=== PATIENT | female | born 1965 ===

== ENCOUNTER 2018-04-02 14:35 | Emergency (ER) | payer BC ==
[2018-04-02 14:53] VITALS: BP 114/74; PULSE 76; RESP 16; TEMP 99.1; O2SAT 99
--- NOTE | 2018-04-02 15:49 | ED PDOC ---
Lower Extremity Pain/Injury Time Seen by Provider: 04/02/18 14:56 Chief Complaint (Nursing): Lower Extremity Problem/Injury Chief Complaint (Provider): Bilateral Foot Pain History Per: Patient History/Exam Limitations: no limitations Onset/Duration Of Symptoms: Days (x2 weeks) Current Symptoms Are (Timing): Still Present Additional Complaint(s): 52 year old female presents to the ED for evaluation of severe pain to the bottoms of both feet. Patient reports for the last two weeks, the pain has been constant but worsening, especially with ambulation and standing, which she says she does a lot at work. She notes she has a history of similar symptoms, and was at one point seeing a biology research assistant in [place], but has not seen him in over a year. Of note, she states she used to receive injections from her biology research assistant in the feet which relieved her symptoms. PMD: none provided Past Medical History Reviewed: Historical Data, Nursing Documentation, Vital Signs Vital Signs: Last Vital Signs Temp 99.1 F 04/02/18 14:50 Pulse 76 04/02/18 14:50 Resp 16 04/02/18 14:50 BP 114/74 04/02/18 14:50 Pulse Ox 99 04/02/18 14:50 - Medical History PMH: Hypothyroidism Denies: Diabetes, Hepatitis, HIV, HTN, Seizures, Sexually Transmitted Disease - Surgical History Surgical History: (x2) - Family History Family History: States: Unknown Family Hx - Social History Current smoker - smoking cessation education provided: No Alcohol: None - Home Medications Home Medications: Ambulatory Orders Medication Instructions Recorded Ibuprofen [Motrin] 600 mg PO Q6 #20 tab 04/02/18 - Allergies Allergies/Adverse Reactions: Allergies Allergy/AdvReac Type Severity Reaction Status Date / Time No Known Allergies Allergy Verified 06/01/14 23:23 Review of Systems ROS Statement: Except As Marked, All Systems Reviewed And Found Negative Musculoskeletal: Positive for: Foot Pain (sereve pain to bottom of bilat feet) Physical Exam - Reviewed Nursing Documentation Reviewed: Yes Vital Signs Reviewed: Yes - Physical Exam Appears: Positive for: No Acute Distress Skin: Positive for: Normal Color, Warm, Dry Cardiovascular/Chest: Positive for: Regular Rate, Rhythm Respiratory: Positive for: Normal Breath Sounds. Negative for: Accessory Muscle Use, Respiratory Distress Pulses-Dorsalis Pedis (L): 2+ Pulses-Dorsalis Pedis (R): 2+ Extremity: Positive for: Normal ROM (of bilat LE), Tenderness (to peroneal and plantar aspects of bilat feet) Neurologic/Psych: Positive for: Alert, Oriented (x3). Negative for: Motor/ Sensory Deficits - ECG O2 Sat by Pulse Oximetry: 99 (RA) Pulse Ox Interpretation: Normal Medical Decision Making Medical Decision Making: Time: 1536 Initial Impression: planter fasciitis, concern for heel spurs Initial Plan: --XR bilateral foot --Motrin 600 mg PO 1613 XR feet FINDINGS: BONES: Right Foot: No acute fracture appreciated. . Left Foot: No acute fracture appreciated. JOINTS: Right Foot: Arthrosis Left Foot: Arthrosis SOFT TISSUES: Right Foot: Normal. Left Foot: Normal. OTHER FINDINGS: None. IMPRESSION: No acute fracture appreciated. 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 There appearances is not believe the to be an acute finding. An os peroneum on the right is incidentally noted. 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 1649 Patient made aware of diagnosis using hospital social worker [id number]. All questions answered at this time. Scribe Attestation: Documented by Agnieszka Macdonald, acting as a scribe for Aurea Smith PA-C. Provider Scribe Attestation: All medical record entries made by the Scribe were at my direction and personally dictated by me. I have reviewed the chart and agree that the record accurately reflects my personal performance of the history, physical exam, medical decision making, and the department course for this patient. I have also personally directed, reviewed, and agree with the discharge instructions and disposition. Disposition - Clinical Impression Clinical Impression: Foot pain, bilateral - Disposition Referrals: Podiatry Clinic [Outside] Disposition Time: 17:09 Condition: STABLE Prescriptions: Ibuprofen [Motrin] 600 mg PO Q6 #20 tab Instructions: Heel Pain (Caused by Plantar Fasciitis) Forms: [facility] ([place]) Print Language: CHINESE
--- NOTE | 2018-04-02 16:37 | RAD ---
Date of service: 04/02/2018 PROCEDURE: Bilateral Feet Radiographs. HISTORY: pain atraumatic COMPARISON: None. FINDINGS: BONES: Right Foot: No acute fracture appreciated. . Left Foot: No acute fracture appreciated. JOINTS: Right Foot: Arthrosis Left Foot: Arthrosis SOFT TISSUES: Right Foot: Normal. Left Foot: Normal. OTHER FINDINGS: None. IMPRESSION: No acute fracture appreciated. 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 There appearances is not believe the to be an acute finding. An os peroneum on the right is incidentally noted. 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
== END 2018-04-02 16:55 | disposition home or self-care (01) ==
LOC: H.ER 14:35
DX: M79.672 Pain in left foot (principal); M79.671 Pain in right foot